=== PATIENT | female | born 1940 | race Caucasian/White ===

== ENCOUNTER → 2016-12-20 | Outpatient (CLI) | payer OTHER, MEDICAID | LOC: BMCIMAGING 14:32 | DX: Z12.31 Encounter for screening mammogram for malignant neoplasm of breast (principal) | CPT/HCPCS: G0202 ==

== ENCOUNTER → 2017-05-05 | Outpatient (CLI) | payer OTHER, MEDICAID ==
[~2017-05-05] MED LIST: GADOBUTROL 10 ML VIAL IVP ONE
== END ==
LOC: FIMAGING 19:42
PROVIDERS: ATTEND Psychiatry & Neurology Neurology
DX: R94.02 Abnormal brain scan (principal); R51 Headache
CPT/HCPCS: 70553; A9585

== ENCOUNTER → 2017-12-31 | Outpatient (CLI) | payer OTHER, MEDICAID | LOC: BMCIMAGING 12:45 | PROVIDERS: ATTEND Obstetrics & Gynecology | DX: Z12.31 Encounter for screening mammogram for malignant neoplasm of breast (principal) ==

== ENCOUNTER 2018-06-11 18:04 | Emergency (ER) | payer OTHER, MEDICAID ==
--- NOTE | 2018-06-11 18:54 | EDPHY ---
H & P Stated Complaint: presyncopal Time Seen by Provider: 06/11/18 18:26 HPI/ROS: CHIEF COMPLAINT: Dizziness HISTORY OF PRESENT ILLNESS: 77-year-old female with TIA and ASD on Xarelto presents after an episode of dizziness. She was standing in the library looking at books when she had a transient episode of dizziness. The dizziness felt like she might faint and lasted 1-2 minutes and completely resolved. She remained standing during the episode and continued looking at the books. No numbness, weakness or other symptoms. Recently undergoing evaluation for ASD and is planning for ASD repair. REVIEW OF SYSTEMS: complete 10 point ROS reviewed and is negative except for the noted elements in the HPI - Medical/Surgical History Other PMH: PE,DVT,FIBROMYALGIA, anxiety,chronic fatigue, cataract surgery, foot surgery - Social History Smoking Status: Never smoked Alcohol Use: Sober Drug Use: None - Physical Exam Exam: General Appearance: Alert, pleasant Eyes: Pupils equal and round, no conjunctival pallor ENT, Mouth: Mucous membranes moist Neck: Normal inspection Respiratory: Lungs are clear to auscultation Cardiovascular: Regular rate and rhythm Gastrointestinal: Abdomen is soft and nontender Neurological: Alert, oriented x3, cranial nerves II through XII intact, motor 5 /5, sensory intact to light touch, normal gait Skin: Warm and dry, no rash Extremities: Nontender, no pedal edema Psychiatric: Mood and affect normal Constitutional: Initial Vital Signs Temperature (C) 36.6 C 06/11/18 18:07 Heart Rate 90 06/11/18 18:07 Respiratory Rate 18 06/11/18 18:07 Blood Pressure 144/91 H 06/11/18 18:07 O2 Sat (%) 92 06/11/18 18:07 O2 Delivery Mode Room Air Allergies/Adverse Reactions: amoxicillin [Amoxicillin] Allergy (Verified 06/11/13 14:44) codeine Allergy (Verified 06/11/18 18:07) Home Medications: Medication Instructions Recorded Bone Strength Unk 2 cap PO TIDMEAL 06/11/13 Cholecalciferol Vit D3 [Vitamin D3 400 units PO DAILY 06/11/13 400 units (OTC)] Cyanocobalamin [Vitamin B12 1,000 mcg IJ Q3D 06/11/13 1000MCG/ML (RX)] Estradiol [ESTRADIOL] 2 mg PO DAILY@08 06/11/13 Estradiol [Estrace Vaginal] 1 aniceto VAG HS 06/11/13 Herbals/Supplements -Info Only 1 each PO DAILY 06/11/13 Levothyroxine [Synthroid 88 mcg 88 mcg PO DAILY06 06/11/13 (RX)] Liothyronine Sodium [Cytomel 25 25 mcg PO DAILY@06 06/11/13 mcg (RX)] Lipase/Protease/Amylase [Zenpep Dr 1 - 4 cap PO QIDMEAL 06/11/13 5,000 Units Capsule] Low Dose Naltrexone 4.5mg 4.5 mg PO HS 06/11/13 Niacin ER [Niaspan 500 mg (RX)] 250 mg PO HS 06/11/13 [place]-3 Fatty Acids [Fish Oil 1000 3,000 mg PO TID 06/11/13 mg (OTC)] Pharmacy Completed 06/11/13 06/11/13 Progesterone,Micronized 200 mg PO HS 06/11/13 [Progesterone] Quazepam [[place]] 15 mg PO HS PRN 06/11/13 Reconciled By 06/11/13 06/11/13 Sumatriptan Succinate [[place]] 6 mg SQ DAILY PRN 06/11/13 Xeralto 11/14/15 Medical Decision Making - Diagnostics EKG Interpretation: EKG interpreted by me reveals normal sinus rhythm, low voltage in the limb leads , no ST or T segment changes. Interpretation: Borderline EKG ED Course/Re-evaluation: This patient presents after brief episode of dizziness. Stat EKG reveals no evidence of ischemia or dysrhythmia. Clinical history does not suggest TIA/CVA and neurologic exam is normal. EKG reveals no evidence of ischemia or dysrhythmia. Will observe. Patient remained asymptomatic throughout her emergency department stay. bus monitor revealed normal sinus rhythm throughout. No evidence of TIA/ dysrhythmia or other concerning etiology for brief episode of dizziness. Warning signs discussed. Will follow up with primary care physician. Differential Diagnosis: Dizziness including but not limited to peripheral and central causes of vertigo , orthostatic causes including dehydration, and blood loss. - Data Points Laboratory Results: Laboratory Results 06/11/18 18:56 06/11/18 18:56 Point of Care Test Results: Chemistry 06/11/18 19:16 POC Troponin I 0.00 ng/mL ng/mL (0.00-0.08) Departure - Departure Disposition: Home, Routine, Self-Care Clinical Impression: Dizziness Condition: Good Instructions: Dizziness (ED) Additional Instructions: Return for recurrent symptoms or any concerns. Referrals: Willi Waite MD [Medical Doctor] - As per Instructions
[2018-06-11 19:09] LABS: PLATELET COUNT 194 10^3/uL (150-400)
[2018-06-11 19:37] VITALS: BP 144/78
--- NOTE | 2018-06-15 07:28 | CPEKG ---
Test Reason : OPEN Blood Pressure : / mmHG Vent. Rate : 086 BPM Atrial Rate : 087 BPM P-R Int : 157 ms QRS Dur : 096 ms QT Int : 378 ms P-R-T Axes : 054 035 006 degrees QTc Int : 452 ms Sinus rhythm Confirmed by Papa Bond ([id number]) on 06/15/2018 7:28:30 AM Referred By: Confirmed By:Papa Bond
== END 2018-06-11 19:37 | disposition home or self-care (01) ==
DX: R42 Dizziness and giddiness (principal)
CPT/HCPCS: 84484-PO

== ENCOUNTER → 2018-06-18 | Outpatient (CLI) | payer OTHER, MEDICAID | LOC: BHFA 15:30 | PROVIDERS: ATTEND Internal Medicine Cardiovascular Disease | DX: M79.606 Pain in leg, unspecified (principal) ==

== ENCOUNTER → 2018-11-26 | Outpatient (CLI) | payer OTHER, MEDICAID | LOC: BMCIMAGING 10:46 | PROVIDERS: ATTEND Physician Assistant | DX: M81.0 Age-related osteoporosis without current pathological fracture (principal) ==

== ENCOUNTER → 2019-01-05 | Outpatient (CLI) | payer OTHER, MEDICAID | LOC: BMCIMAGING 14:54 | PROVIDERS: ATTEND Obstetrics & Gynecology | DX: Z12.31 Encounter for screening mammogram for malignant neoplasm of breast (principal) ==

== ENCOUNTER → 2019-01-21 | Outpatient (CLI) | payer OTHER, MEDICAID | LOC: BMCIMAGING 11:21 | PROVIDERS: ATTEND Obstetrics & Gynecology | DX: R92.2 Inconclusive mammogram (principal) ==

== ENCOUNTER → 2019-02-01 | Outpatient (CLI) | payer OTHER, MEDICAID ==
[~2019-02-01] MED LIST changes: +BUPIVACAINE 0.5% 30 ML SDV ONE; -GADOBUTROL 10 ML VIAL IVP ONE; +LIDOCAINE 1% 5 ML SDV ONE
== END ==
LOC: FIMAGING 07:11
PROVIDERS: ATTEND Obstetrics & Gynecology
PROC: 0HBT3ZX Excision of Right Breast, Percutaneous Approach, Diagnostic (ICD-10-PCS; principal; 2019-02-01)
DX: C50.411 Malignant neoplasm of upper-outer quadrant of right female breast (principal)

== ENCOUNTER → 2019-02-12 | Outpatient (CLI) | payer OTHER, MEDICAID | LOC: FIMAGING 07:08 ==